=== PATIENT | female | born 1960 | race Hispanic/Latino ===

== ENCOUNTER → 2024-06-18 | Day surgery (SDC) | payer BC, OTHER ==
[~2024-06-18] MED LIST: CRESTOR40 MG PO; HYOSCYAMINE SULFATE 0.5 MG/ML INJ ONE; JANUVIA100 MG PO; LIDOCAINE HCL 2% LOCAL INJ 5 ML SDV VIAL INJ ONE; LOSARTAN-HCTZ1 EAC2 PO; METOPROLOL TARTRATE INJ 1 MG/ML VIAL ONE; PROPOFOL IV EMULSION 10 MG/ML 20 ML VIAL ONE; PROPOFOL IV EMULSION 50 ML IV ONE; [UNRECOGNIZED DRUG - OTHER] PO
[2024-06-18] MEDS: LACTATED RINGER'S 1,000 ML ONE (07:25)
[2024-06-18 10:47] VITALS: TEMP 97
[2024-06-18 11:15] VITALS: BP 142/80; PULSE 89; RESP 17; O2SAT 98
== END | disposition home or self-care (01) ==
LOC: OR 07:03
PROVIDERS: ATTEND Internal Medicine Gastroenterology
DX: Z09 Encounter for follow-up examination after completed treatment for conditions other than malignant neoplasm (principal); K63.5 Polyp of colon; K57.30 Diverticulosis of large intestine without perforation or abscess without bleeding; K64.8 Other hemorrhoids; K29.70 Gastritis, unspecified, without bleeding; E11.9 Type 2 diabetes mellitus without complications; I10 Essential (primary) hypertension; G89.29 Other chronic pain; Z01.810 Encounter for preprocedural cardiovascular examination; Z79.84 Long term (current) use of oral hypoglycemic drugs; Z79.899 Other long term (current) drug therapy
CPT/HCPCS: 36415; 45380; 82948; 93005; J1980; J2003; J2704 ×2; J7121; 45384